=== PATIENT | female | born 1945 | race Caucasian/White ===

== ENCOUNTER 2016-10-20 23:50 | Emergency (ER) | payer MEDICARE ==
[2016-10-20 23:50] LABS: BASOPHILS 0.3 %; BASOPHILS ABSOLUTE 0.03 10/3/uL (0.0-0.16); EOSINOPHILS 0.2 %; EOSINOPHILS ABSOLUTE 0.02 10/3/uL (0.0-0.53); HEMATOCRIT 43.5 % (36.0-48.0); HEMOGLOBIN 15.1 g/dL (12.0-16.0); IMMATURE GRANULOCYTES 0.1 %; IMMATURE GRANULOCYTES ABSOLUTE 0.01 10/3/uL (0.0-0.11); LYMPHOCYTES ABSOLUTE 1.98 10/3/uL (0.67-4.30); MEAN CORPUS HGB CONC 34.7 g/dL (32.0-36.0); MEAN CORPUSCULAR HEMOGLOB 31.9 pg (26.0-34.0); MEAN CORPUSCULAR VOLUME 91.8 fL (80-100); MEAN PLATELET VOLUME 11.6 fL (9.2-13.0); MONOCYTES 6.2 %; MONOCYTES ABSOLUTE 0.56 10/3/uL (0.21-1.20); NEUTROPHILS 71.2 %; NEUTROPHILS ABSOLUTE 6.42 10/3/uL (2.02-8.40); PLATELET COUNT 267 10/3/uL (150-400); RBC DISTRIBUTION WIDTH 13.2 % (12.0-16.0); RED CELL COUNT 4.74 10/6/uL (4.0-5.6)
[2016-10-20 23:51] LABS: MANUAL DIFF NO %
[2016-10-21 00:07] LABS: A/G RATIO 1.5 (0.7-1.9); ALBUMIN 4.1 G/DL (3.5-5.0); ALKALINE PHOSPHATASE 55 U/L (45-117); BUN (BLOOD UREA NITROGEN) 10 MG/DL (6-23); CALCIUM, SERUM 8.9 MG/DL (8.5-10.4); CHLORIDE, SERUM 98 MMOL/L (96-112); CO2 (CARBON DIOXIDE) 29 MMOL/L (24-34); CREATININE 0.55 MG/DL (0.55-1.02); GFR AFRICAN AMERICAN 110 ML/MIN (>=60); GFR NON AFRICAN AMERICAN 95 ML/MIN (>=60); GLOBULIN 2.8 G/DL (2.5-4.1); GLUCOSE, SERUM 85 MG/DL (60-99); POTASSIUM, SERUM 3.2 MMOL/L (3.5-5.3); SGOT(AST) 9 U/L (5-40); SGPT(ALT) 16 U/L (5-65); SODIUM, SERUM 138 MMOL/L (135-148); TOTAL BILIRUBIN 0.7 MG/DL (0-1.2); TOTAL PROTEIN 6.9 G/DL (6.0-8.5)
[2017-03-23] MEDS ORDERED: PRINZIDE1 TAB PO (11:42)
[2017-03-23] MEDS ORDERED: ESTROGEN/TESTOSTERON SQ (11:43)
[2017-03-23] MEDS ORDERED: KLOR-CON M2020 MEQ PO (11:44)
[2017-03-24] MEDS ORDERED: EXCEDRIN MIGRA1 EAC1 PO (17:21)
[2017-03-24] MEDS ORDERED: ESTROGEN IJ (17:22)
[2017-03-24] MEDS ORDERED: BENEFIBER PO (17:22)
[2017-03-24] MEDS ORDERED: TESTOST IJ (17:22)
[2017-03-24] MEDS ORDERED: CASCARA SAGRADA PO (17:23)
[2017-03-24] MEDS ORDERED: KLOR-CON20 MEQ PO (17:23)
[2017-03-24] MEDS ORDERED: CINNAMONPO PO (17:24)
[2017-03-24] MEDS ORDERED: COMBIVENT RESPIM4 GM INH (17:24)
[2017-03-24] MEDS ORDERED: MULTIVIT/MIN PO (17:25)
[2017-03-24] MEDS ORDERED: FLAXSEED OIL1000 MG PO (17:25)
[2017-03-24] MEDS ORDERED: PRINZIDE1 TAB PO (17:25)
[2017-03-24] MEDS ORDERED: PROVIGIL2 PO (17:26)
[2017-03-25] MEDS ORDERED: BENEFIBER PO (17:16)
[2017-03-25] MEDS ORDERED: EXCEDRIN MIGRA1 EAC1 PO (17:16)
[2017-03-25] MEDS ORDERED: CINNAMONPO PO (17:19)
[2017-03-25] MEDS ORDERED: COMBIVENT INH (17:19)
[2017-03-25] MEDS ORDERED: FLAXSEED OIL1000 MG PO (17:19)
== END 2016-10-21 02:23 | disposition home or self-care (01) ==
LOC: ER 23:50
PROVIDERS: Specialist
DX: R42 Dizziness and giddiness (principal); E87.6 Hypokalemia; F17.200 Nicotine dependence, unspecified, uncomplicated; I10 Essential (primary) hypertension; Z90.710 Acquired absence of both cervix and uterus; Z88.5 Allergy status to narcotic agent
CPT/HCPCS: 70450; 80053; 81001; 83690; 85025; 93005; 99285; A9270-GY